=== PATIENT | female | born 1980 | race Caucasian/White ===

== ENCOUNTER 2022-11-08 18:15 | Emergency (ER) | payer BC, OTHER ==
[~2022-11-08] VITALS: Ht 157.5 cm; Wt 108.5 kg
[2022-11-08] MEDS ORDERED: AMOX-277 PO (20:24)
[2022-11-08] MEDS ORDERED: NAP500T PO (20:24)
[2022-11-08 21:29] VITALS: BP 139/84
== END 2022-11-08 22:13 | disposition home or self-care (01) ==
LOC: ER 18:15
DX: H66.91 Otitis media, unspecified, right ear (principal); F41.9 Anxiety disorder, unspecified; E11.9 Type 2 diabetes mellitus without complications; F17.210 Nicotine dependence, cigarettes, uncomplicated; I10 Essential (primary) hypertension; Z91.040 Latex allergy status; Z90.49 Acquired absence of other specified parts of digestive tract; Z90.710 Acquired absence of both cervix and uterus; Z90.89 Acquired absence of other organs; Z98.890 Other specified postprocedural states

== ENCOUNTER 2023-02-16 16:23 | Emergency (ER) | payer BC ==
[~2023-02-16] VITALS: Ht 157.5 cm; Wt 107.4 kg
[~2023-02-16 16:23] MED LIST: AMOX-277 PO; NAP500T PO
[2023-02-16 17:39] VITALS: BP 125/80
[2023-02-16] MEDS ORDERED: KETOROLAC TROMETH 60MG/2ML VIAL IM ONE (17:45)
[2023-02-16] MEDS ORDERED: HYDR-4798 PO (18:32)
[2023-02-16] MEDS ORDERED: METH750T22 PO (18:32)
== END 2023-02-16 18:35 | disposition home or self-care (01) ==
LOC: ER 16:23
DX: M51.16 Intervertebral disc disorders with radiculopathy, lumbar region (principal); F41.9 Anxiety disorder, unspecified; F17.210 Nicotine dependence, cigarettes, uncomplicated; E11.9 Type 2 diabetes mellitus without complications; I10 Essential (primary) hypertension; Z90.49 Acquired absence of other specified parts of digestive tract; Z90.710 Acquired absence of both cervix and uterus; Z90.89 Acquired absence of other organs; Z91.040 Latex allergy status; Z79.899 Other long term (current) drug therapy
CPT/HCPCS: 72100; 96372; 99283; J1885